=== PATIENT | male | born 1975 ===

== ENCOUNTER 2021-06-24 14:59 | Emergency (ER) | payer MEDICAID ==
[~2021-06-24] VITALS: Ht 175.3 cm; Wt 72.6 kg
[2021-06-24] MEDS ORDERED: HYDROCODONE/APAP 10-325 MG TABLET PO ONE (16:30)
[2021-06-24] MEDS ORDERED: HYDROCODONE/APAP 10-325 MG TABLET ONE (17:21)
[2021-06-24] MEDS ORDERED: HYDR-4209 PO (17:32)
[2021-06-24] MEDS ORDERED: IBUP-1955 PO (17:32)
[2021-06-24] MEDS ORDERED: NEOMY/BACITRA/POLYMYXIN B OINT UD PACKET TP ONE (17:45)
[2021-06-24 18:38] VITALS: BP 136/77
== END 2021-06-24 17:40 | disposition home or self-care (01) ==
LOC: ER 14:59
DX: S52.132A Displaced fracture of neck of left radius, initial encounter for closed fracture (principal); S63.502A Unspecified sprain of left wrist, initial encounter; V18.4XXA Pedal cycle driver injured in noncollision transport accident in traffic accident, initial encounter; Y93.55 Activity, bike riding; Y92.89 Other specified places as the place of occurrence of the external cause; Z88.0 Allergy status to penicillin; R03.0 Elevated blood-pressure reading, without diagnosis of hypertension
CPT/HCPCS: 73080; 73110; A4663